=== PATIENT | female | born 1985 ===

== ENCOUNTER 2020-09-01 15:23 | Inpatient (IN) ==
[2020-09-01] MEDS ORDERED: ceFAZolin 2,000 MG in PREMIX 1 EACH IV ONE (16:01)
[2020-09-01] MEDS ORDERED: FAMOTIDINE 20 MG/2 ML VIAL IV ONE (16:01)
[2020-09-01] MEDS ORDERED: LACTATED RINGERS 1,000 ML IV PRN (16:01)
[2020-09-01] MEDS ORDERED: CITRIC ACID/SODIUM CITRATE 30 ML UDCUP PO ONE (16:01)
[2020-09-01] MEDS ORDERED: OXYTOCIN/LR 20 UNIT/1,000 ML BAG IV ONE ×3 (16:19→20:55)
[2020-09-01] MEDS ORDERED: miSOPROStoL 200 MCG TABLET ONE (16:21)
[2020-09-01] MEDS ORDERED: TRANEXAMIC ACID 1,000 MG/10 ML VIAL ONE (16:21)
[2020-09-01] MEDS ORDERED: METHYLERGONOVINE 0.2 MG/1 ML AMP ONE (16:22)
[2020-09-01] MEDS ORDERED: CARBOPROST TROMETHAMINE 250 MCG/ML AMP IM ONE (16:22)
[2020-09-01 16:27] LABS: Basophils % 0.4 % (0.0-0.8); Eosinophils # 0.1 10*3/uL (0.0-0.87); Eosinophils % 0.9 % (0.00-10.9); Hemoglobin 11.6 GM/DL (12.0-16.0); Immature Granulocytes % 0.6 %; Immature Granulocytes Absolute 0.05 #; Lymphocytes # 1.9 10*3/uL (1.4-4.0); Lymphocytes % 21.3 % (21.3-54.2); Mean Corpuscular HGB Conc 31.4 GM/DL (32-36); Mean Corpuscular Volume 84.9 FL (87-102); Mean Platelet Volume 11.9 FL (9.6-12.0); Monocytes % 4.1 % (1.7-12.7); Neutrophils % 72.7 % (38.7-73.9); Platelet Count 235 T/CUMM (130-400); Red Blood Count 4.36 MC/CUMM (3.8-5.5); Red Cell Distribution Width 14.8 % (9.3-17.3); White Blood Count 9.1 T/CUMM (4-12)
[2020-09-01] MEDS ORDERED: MORPHINE 10 MG/10 ML VIAL ONE (16:29)
[2020-09-01] MEDS ORDERED: fentaNYL 100 MCG/2 ML VIAL ONE (16:29)
[2020-09-01] MEDS ORDERED: ONDANSETRON 4 MG/2 ML VIAL ONE (16:29)
[2020-09-01] MEDS ORDERED: BUPIVACAINE SPINAL 0.75% 2 ML AMP SPINAL ONE (16:29)
[2020-09-01] MEDS ORDERED: PHENYLEPHRINE 1 MG/10 ML SYRINGE IV ONE (16:29)
[2020-09-01] MEDS ORDERED: BUPIVACAINE MPF 0.25% 30 ML VIAL ONE ×3 (17:13)
[2020-09-01] MEDS ORDERED: DEXAMETHASONE 4 MG/1 ML VIAL ONE (17:13)
[2020-09-01 17:14] LABS: Cord Venous Blood HCO3 22.2 MMOL/L; Cord Venous Blood PCO2 47.9 MMHG; Cord Venous Blood PO2 24.3
[2020-09-01 17:20] LABS: Hepatitis B Surface Ag Quant < 0.10 Index; Hepatitis B Surface Ag Result Non-Reactive (NonReactive)
[2020-09-01 17:22] LABS: Bilirubin,Urine Negative (Negative); Blood, Urine Small mg/dL (Negative); Glucose,Urine (UA) 50 mg/dL (Negative); Ketones,Urine Negative (Negative); Mucus,Urine Occasional /LPF (Occasional); Nitrite,Urine Negative (Negative); Protein,Urine Negative; RBC,Urine 3 /HPF (0-4); Squamous Epithelial Cell,Urine Occasional /HPF (0-10); Urine Appearance CLEAR (Clear); Urine Color Straw (Yellow); Urine Specific Gravity 1.017 (1.001-1.035); Urine Urobilinogen < 2.0 EU/DL (0.2-1.0); WBC,Urine <1 /HPF (0-6)
[2020-09-01 17:30] LABS: HIV Antigen/Antibody Result Nonreactive (Nonreactive); Rubella Antibody IgG Result Reactive (NonReactive)
[2020-09-01] MEDS ORDERED: SIMETHICONE CHEW 80 MG TABLET PO PRN (17:36)
[2020-09-01] MEDS ORDERED: RHO(D) IMMUNE GLOBULIN 300 MCG SYRINGE IM ONE (17:36)
[2020-09-01] MEDS ORDERED: ACETAMINOPHEN 325 MG TABLET PO PRN (17:36)
[2020-09-01] MEDS ORDERED: ONDANSETRON 4 MG/2 ML VIAL IV PRN (17:36)
[2020-09-01] MEDS ORDERED: MAGNESIUM HYDROXIDE SUSP 30 ML UDCUP PO PRN (17:36)
[2020-09-01] MEDS ORDERED: LACTATED RINGERS 1,000 ML IV SCH (18:00)
[2020-09-01] MEDS ORDERED: ceFAZolin 1,000 MG in SYRINGE 1 EACH IV SCH (18:00)
[2020-09-01] MEDS: KETOROLAC 30 MG/1 ML VIAL IV SCH (20:48)
[2020-09-01] MEDS: ACETAMINOPHEN 500 MG TABLET PO SCH (21:41)
[2020-09-01] MEDS: DOCUSATE SODIUM 100 MG CAPSULE PO SCH (21:41)
[2020-09-01] MEDS: METHYLERGONOVINE 0.2 MG TABLET PO SCH (22:14)
[2020-09-01] MEDS: oxyCODONE/ACETAMINOPHEN 5-325 MG TABLET PO PRN (23:31)
[2020-09-02] MEDS ORDERED: ceFAZolin 1,000 MG in SYRINGE 1 EACH IV SCH (00:30)
[2020-09-02 01:20] LABS: Basophils % 0.2 % (0.0-0.8); Eosinophils % 0.2 % (0.00-10.9); Hematocrit 30.4 VOL% (35.7-47.0); Hemoglobin 9.8 GM/DL (12.0-16.0); Immature Granulocytes % 0.6 %; Immature Granulocytes Absolute 0.09 #; Lymphocytes % 6.3 % (21.3-54.2); Mean Corpuscular HGB Conc 32.2 GM/DL (32-36); Mean Platelet Volume 12.4 FL (9.6-12.0); Monocytes % 3.1 % (1.7-12.7); Neutrophils % 89.6 % (38.7-73.9); Platelet Count 204 T/CUMM (130-400); Red Blood Count 3.62 MC/CUMM (3.8-5.5); Red Cell Distribution Width 14.6 % (9.3-17.3); White Blood Count 16.3 T/CUMM (4-12)
[2020-09-02] MEDS: KETOROLAC 30 MG/1 ML VIAL IV SCH ×4 (02:56→20:08)
[2020-09-02] MEDS: ACETAMINOPHEN 500 MG TABLET PO SCH (03:07)
[2020-09-02] MEDS: METHYLERGONOVINE 0.2 MG TABLET PO SCH (03:54)
[2020-09-02] MEDS: oxyCODONE/ACETAMINOPHEN 5-325 MG TABLET PO PRN ×3 (06:04→19:00)
[2020-09-02] MEDS: DOCUSATE SODIUM 100 MG CAPSULE PO SCH ×2 (08:15→20:12)
[2020-09-02] MEDS: MULTIVITAMIN (PRENATAL) TABLET PO SCH (08:15)
[2020-09-02] MEDS: FERROUS SULFATE 325 MG TABLET PO SCH (08:15)
[2020-09-02 09:01] LABS: Basophils % 0.2 % (0.0-0.8); Hematocrit 31.9 VOL% (35.7-47.0); Hemoglobin 10.1 GM/DL (12.0-16.0); Immature Granulocytes % 0.5 %; Immature Granulocytes Absolute 0.07 #; Lymphocytes # 1.6 10*3/uL (1.4-4.0); Lymphocytes % 10.7 % (21.3-54.2); Mean Corpuscular HGB Conc 31.7 GM/DL (32-36); Mean Corpuscular Volume 84.2 FL (87-102); Mean Platelet Volume 11.6 FL (9.6-12.0); Monocytes % 6.1 % (1.7-12.7); Neutrophils % 82.5 % (38.7-73.9); Platelet Count 196 T/CUMM (130-400); Red Blood Count 3.79 MC/CUMM (3.8-5.5); Red Cell Distribution Width 14.7 % (9.3-17.3); White Blood Count 14.4 T/CUMM (4-12)
[2020-09-02] MEDS: IBUPROFEN 800 MG TABLET PO PRN (12:15)
[2020-09-03] MEDS: KETOROLAC 30 MG/1 ML VIAL IV SCH ×2 (03:40→10:15)
[2020-09-03] MEDS ORDERED: INFLUENZA VIRUS VACCINE 0.5 ML SYRINGE IM ONE (08:00)
[2020-09-03] MEDS: FERROUS SULFATE 325 MG TABLET PO SCH (10:15)
[2020-09-03] MEDS: DOCUSATE SODIUM 100 MG CAPSULE PO SCH (10:15)
[2020-09-03] MEDS: MULTIVITAMIN (PRENATAL) TABLET PO SCH (10:15)
[2020-09-03 11:33] VITALS: BP 103/65
[2020-09-03] MEDS: IBUPROFEN 800 MG TABLET PO PRN (13:09)
[2020-09-03] MEDS: oxyCODONE/ACETAMINOPHEN 5-325 MG TABLET PO PRN (13:09)
== END 2020-09-03 14:25 | disposition home or self-care (01) | DRG 788 ==
LOC: N.LDOUT 15:23 → N.LD 15:35 → N.OB 20:29
PROVIDERS: ADMIT Obstetrics & Gynecology; ATTEND Obstetrics & Gynecology
PROC: LDCSECT (ICD-10-PCS; 2020-09-01 16:25)